=== PATIENT | female | born 1985 | race Caucasian/White ===

== ENCOUNTER → 2017-12-01 | Outpatient (CLI) | payer OTHER ==
[2017-12-01 17:16] LABS: HEMATOCRIT 44.6 % (37.0-47.0); HEMOGLOBIN 15.2 gm/dL (12.0-15.0); MCHC 34.1 g/dL (28.0-37.0); MCV 87.9 fL (80.0-100.0); MPV 7.4 fl. (7.2-11.1); RBC 5.07 mil/uL (4.20-5.00); RDW-CV 13.4 % (10.5-14.5); WBC 7.4 thou/uL (4.0-11.0)
== END ==
LOC: EDBD 16:55 → M.LAB 16:55
PROVIDERS: Nurse Practitioner Family
DX: R07.81 Pleurodynia (principal); R10.11 Right upper quadrant pain